=== PATIENT | female | born 1940 | race Two or more races ===

== ENCOUNTER 2022-01-18 19:00 | Inpatient (IN) | payer OTHER ==
[~2022-01-18] VITALS: Ht 167.6 cm; Wt 73.0 kg
[2022-01-18] MEDS ORDERED: cloNIDine HCL 0.1 MG TAB PO ONE (20:00)
[2022-01-18 20:19] LABS: Basophils # (auto) 0.1 10 ^3/uL (0-0.2); Basophils % (auto) 1.4 % (0.0-2.0); Eosinophils # (auto) 0.2 10 ^3/uL (0-0.8); Eosinophils % (auto) 2.9 % (0.0-7.0); Hematocrit 34.6 % (36.0-46.0); Hemoglobin 10.8 g/dL (12.2-16.2); Lymphocytes # (auto) 0.9 10 ^3/uL (0.4-5.4); Lymphocytes % (auto) 15.2 % (10.0-50.0); Mean Corpuscular Hemoglobin 29.9 pg (28.0-32.0); Mean Corpuscular Hgb Conc. 31.1 g/dL (32.0-36.0); Mean Corpuscular Volume 96.2 fL (80.0-100.0); Monocytes # (auto) 0.5 10 ^3/uL (0-1.3); Monocytes % (auto) 8.5 % (0.0-12.0); Neutrophils # (auto) 4.3 10 ^3/uL (1.6-8.6); Nucleated Red Blood Cells % 0.1 %; Red Cell Distribution Width 17.1 % (11.8-14.3)
[2022-01-18 20:21] LABS: Albumin 3.2 g/dL (3.4-5.0); Calcium 8.9 mg/dL (8.5-10.1)
[2022-01-18 20:24] LABS: BUN/Creatinine Ratio 10.4; Bilirubin, Total 0.5 mg/dL (0.2-1.0); Total Protein 6.7 g/dL (6.4-8.2)
[2022-01-18] MEDS ORDERED: ALBUTEROL SULF 2.5 MG/0.5ML(0.5%) NEB SOLN HHN ONE (20:45)
[2022-01-18] MEDS ORDERED: InsuLIN REG 1unit/0.01ml Soln (100units/ml) IV ONE (20:45)
[2022-01-18] MEDS ORDERED: SODIUM BICARBONATE 8.4 % INJ 50ML VIAL IV ONE (20:45)
[2022-01-18] MEDS ORDERED: CALCIUM GLUC 1,000mg/50ml-NS 50 ML IV ONE (20:45)
[2022-01-18] MEDS ORDERED: DEXTROSE (50%) 50ML SYRG IV ONE (20:45)
[2022-01-18] MEDS ORDERED: ONDANSETRON HCL 4 MG/2 ML VIAL IV PRN (21:15)
[2022-01-18] MEDS ORDERED: MORPHINE SULFATE INJ 2 MG/ml SYRG IV PRN (21:15)
[2022-01-18] MEDS ORDERED: NITROGLYCERIN 0.4 MG SL TAB SL PRN (21:15)
[2022-01-18] MEDS ORDERED: FUROSEMIDE 40 MG/4 ML VIAL IV ONE (21:15)
[2022-01-18] MEDS: ATORVASTATIN 20 MG TAB PO SCH (22:36)
[2022-01-18] MEDS: CARVEDILOL 3.125 MG TAB PO SCH (22:37)
[2022-01-18] MEDS: hydrALAZINE HCL 25 MG TAB PO SCH (23:50)
[2022-01-19] VITALS (8 sets, daily range): BP systolic 100–172; BP diastolic 36–62
[2022-01-19 00:38] LABS: BUN/Creatinine Ratio 10.8; Calcium 8.7 mg/dL (8.5-10.1)
[2022-01-19 00:44] LABS: Potassium 6.1 mmol/L (3.5-5.1)
[2022-01-19] MEDS: hydrALAZINE HCL 20 MG/ML VL IV PRN (04:21)
[2022-01-19] MEDS: hydrALAZINE HCL 25 MG TAB PO SCH ×4 (06:25→23:59)
[2022-01-19 06:26] LABS: Basophils # (auto) 0.1 10 ^3/uL (0-0.2); Basophils % (auto) 1.4 % (0.0-2.0); Eosinophils # (auto) 0.1 10 ^3/uL (0-0.8); Eosinophils % (auto) 2.5 % (0.0-7.0); Hematocrit 29.4 % (36.0-46.0); Hemoglobin 9.7 g/dL (12.2-16.2); Lymphocytes % (auto) 18.4 % (10.0-50.0); Mean Corpuscular Hemoglobin 31.4 pg (28.0-32.0); Mean Corpuscular Hgb Conc. 32.9 g/dL (32.0-36.0); Mean Corpuscular Volume 95.5 fL (80.0-100.0); Monocytes # (auto) 0.5 10 ^3/uL (0-1.3); Monocytes % (auto) 8.5 % (0.0-12.0); Neutrophils # (auto) 3.9 10 ^3/uL (1.6-8.6); Neutrophils % (auto) 69.2 % (37.0-80.0); Nucleated Red Blood Cells % 0.2 %; Red Blood Cells 3.08 10^6/uL (4.0-5.20); Red Cell Distribution Width 16.8 % (11.8-14.3); White Blood Cell 5.6 10^3/uL (4.4-10.8)
[2022-01-19] MEDS: LEVOTHYROXINE SODIUM 25 MCG TAB PO SCH (06:26)
[2022-01-19 06:53] LABS: Albumin 2.9 g/dL (3.4-5.0); BUN/Creatinine Ratio 10.5; Bilirubin, Total 0.4 mg/dL (0.2-1.0); Calcium 8.7 mg/dL (8.5-10.1)
[2022-01-19 06:58] LABS: Urine Bacteria NONE SEEN /hpf (None Seen); Urine Blood Negative /uL (Negative); Urine Specific Gravity 1.012 (1.001-1.035); Urine WBC 12 /hpf (0 - 5)
[2022-01-19 08:34] LABS: Potassium 5.6 mmol/L (3.5-5.1)
[2022-01-19] MEDS: SEVELAMER 800 MG TAB PO SCH ×3 (08:51→18:59)
[2022-01-19] MEDS ORDERED: SODIUM CHL 0.9% 1000 ML BAG XX ONE (09:30)
[2022-01-19] MEDS: CARVEDILOL 3.125 MG TAB PO SCH ×2 (10:00→22:00)
[2022-01-19] MEDS: ISOSORBIDE MONONITRATE ER 60 MG TAB PO SCH (10:00)
[2022-01-19] MEDS: CLOPIDOGREL BISULFATE 75 MG TAB PO SCH (10:37)
[2022-01-19] MEDS: FUROSEMIDE 40 MG TAB PO SCH (10:38)
[2022-01-19] MEDS: PANTOPRAZOLE 40 MG TAB PO SCH (10:38)
[2022-01-19 10:55] LABS: % Iron Saturation 31.4 % (15-50)
[2022-01-19 12:47] LABS: Hepatitis A Ab IgM Negative; Hepatitis B Core IgM Negative; Hepatitis C Antibody Negative (Negative)
[2022-01-19] MEDS ORDERED: EPOETIN ALFA-EPBX 10,000 UNIT/1ML VIAL SC ONE (21:00)
[2022-01-19] MEDS: ATORVASTATIN 20 MG TAB PO SCH (21:32)
[2022-01-20 05:00] VITALS: BP 118/67
[2022-01-20 05:39] LABS: Basophils # (auto) 0.1 10 ^3/uL (0-0.2); Basophils % (auto) 1.1 % (0.0-2.0); Eosinophils # (auto) 0.2 10 ^3/uL (0-0.8); Eosinophils % (auto) 4.7 % (0.0-7.0); Hematocrit 30.2 % (36.0-46.0); Hemoglobin 9.8 g/dL (12.2-16.2); Lymphocytes # (auto) 0.7 10 ^3/uL (0.4-5.4); Lymphocytes % (auto) 14.5 % (10.0-50.0); Mean Corpuscular Hemoglobin 31.1 pg (28.0-32.0); Mean Corpuscular Hgb Conc. 32.4 g/dL (32.0-36.0); Mean Corpuscular Volume 96.1 fL (80.0-100.0); Monocytes # (auto) 0.4 10 ^3/uL (0-1.3); Monocytes % (auto) 8.5 % (0.0-12.0); Neutrophils # (auto) 3.3 10 ^3/uL (1.6-8.6); Neutrophils % (auto) 71.2 % (37.0-80.0); Nucleated Red Blood Cells % 0.1 %; Red Blood Cells 3.15 10^6/uL (4.0-5.20); Red Cell Distribution Width 17.2 % (11.8-14.3); White Blood Cell 4.6 10^3/uL (4.4-10.8)
[2022-01-20 06:08] LABS: Potassium 4.7 mmol/L (3.5-5.1)
[2022-01-20 06:16] LABS: BUN/Creatinine Ratio 8.8; Calcium 8.7 mg/dL (8.5-10.1)
[2022-01-20] MEDS: hydrALAZINE HCL 25 MG TAB PO SCH ×4 (06:46→23:56)
[2022-01-20] MEDS: LEVOTHYROXINE SODIUM 25 MCG TAB PO SCH (06:46)
[2022-01-20] MEDS ORDERED: SODIUM CHL 0.9% 1000 ML BAG XX ONE (07:00)
[2022-01-20 09:00] VITALS: BP 179/50
[2022-01-20] MEDS: PANTOPRAZOLE 40 MG TAB PO SCH (09:56)
[2022-01-20] MEDS: CLOPIDOGREL BISULFATE 75 MG TAB PO SCH (09:57)
[2022-01-20] MEDS: SEVELAMER 800 MG TAB PO SCH ×3 (09:57→16:59)
[2022-01-20] MEDS: FUROSEMIDE 40 MG TAB PO SCH (09:58)
[2022-01-20] MEDS: ISOSORBIDE MONONITRATE ER 60 MG TAB PO SCH (10:00)
[2022-01-20] MEDS: CARVEDILOL 3.125 MG TAB PO SCH ×2 (10:00→22:31)
[2022-01-20 12:25] VITALS: BP 153/54
[2022-01-20] MEDS ORDERED: ALBUTEROL SULF 2.5 MG/0.5ML(0.5%) NEB SOLN NEB PRN (13:30)
[2022-01-20 16:18] VITALS: BP 201/54
[2022-01-20] MEDS: hydrALAZINE HCL 20 MG/ML VL IV PRN (18:10)
[2022-01-20] MEDS ORDERED: EPOETIN ALFA-EPBX 10,000 UNIT/1ML VIAL SC ONE (21:00)
[2022-01-20 21:18] VITALS: BP 177/86
[2022-01-20 22:00] VITALS: BP 167/58
[2022-01-20] MEDS: ATORVASTATIN 20 MG TAB PO SCH (22:31)
[2022-01-21 05:00] VITALS: BP 188/63
[2022-01-21] MEDS: hydrALAZINE HCL 25 MG TAB PO SCH ×4 (05:05→23:36)
[2022-01-21 06:34] LABS: Potassium 4.6 mmol/L (3.5-5.1)
[2022-01-21 06:52] LABS: BUN/Creatinine Ratio 7.7; Calcium 8.7 mg/dL (8.5-10.1)
[2022-01-21] MEDS: LEVOTHYROXINE SODIUM 25 MCG TAB PO SCH (07:17)
[2022-01-21 07:28] VITALS: BP 148/46
[2022-01-21 09:00] VITALS: BP 101/53
[2022-01-21] MEDS: CLOPIDOGREL BISULFATE 75 MG TAB PO SCH (09:47)
[2022-01-21] MEDS: SEVELAMER 800 MG TAB PO SCH ×3 (09:47→18:01)
[2022-01-21] MEDS: PANTOPRAZOLE 40 MG TAB PO SCH (09:47)
[2022-01-21] MEDS: FUROSEMIDE 40 MG TAB PO SCH (09:49)
[2022-01-21] MEDS: ISOSORBIDE MONONITRATE ER 60 MG TAB PO SCH (09:52)
[2022-01-21] MEDS: CARVEDILOL 3.125 MG TAB PO SCH ×2 (09:52→22:02)
[2022-01-21 12:52] VITALS: BP 191/66
[2022-01-21] MEDS: FUROSEMIDE 20 MG TAB PO SCH (14:34)
[2022-01-21] MEDS: hydrALAZINE HCL 20 MG/ML VL IV PRN (14:35)
[2022-01-21] MEDS: ACETAMINOPHEN 325 MG TAB PO PRN (14:56)
[2022-01-21 16:58] VITALS: BP 161/48
[2022-01-21 21:54] VITALS: BP 195/55
[2022-01-21] MEDS: ATORVASTATIN 20 MG TAB PO SCH (22:02)
[2022-01-22 05:00] VITALS: BP 122/74
[2022-01-22 05:58] LABS: BUN/Creatinine Ratio 8.9; Calcium 9.5 mg/dL (8.5-10.1); Potassium 4.8 mmol/L (3.5-5.1)
[2022-01-22] MEDS: hydrALAZINE HCL 25 MG TAB PO SCH ×3 (06:00→18:13)
[2022-01-22] MEDS: LEVOTHYROXINE SODIUM 25 MCG TAB PO SCH (06:41)
[2022-01-22] MEDS ORDERED: SODIUM CHL 0.9% 1000 ML BAG XX ONE (07:00)
[2022-01-22 08:00] VITALS: BP 210/72
[2022-01-22 09:00] VITALS: BP 210/72
[2022-01-22] MEDS: FUROSEMIDE 20 MG TAB PO SCH (10:01)
[2022-01-22] MEDS: CLOPIDOGREL BISULFATE 75 MG TAB PO SCH (10:02)
[2022-01-22] MEDS: PANTOPRAZOLE 40 MG TAB PO SCH (10:02)
[2022-01-22] MEDS: SEVELAMER 800 MG TAB PO SCH ×3 (10:02→18:13)
[2022-01-22 13:00] VITALS: BP 172/58
[2022-01-22] MEDS: CARVEDILOL 3.125 MG TAB PO SCH ×2 (14:24→21:34)
[2022-01-22] MEDS: ISOSORBIDE MONONITRATE ER 60 MG TAB PO SCH (14:25)
[2022-01-22 17:00] VITALS: BP 185/56
[2022-01-22] MEDS: hydrALAZINE HCL 20 MG/ML VL IV PRN (19:49)
[2022-01-22] MEDS ORDERED: EPOETIN ALFA-EPBX 10,000 UNIT/1ML VIAL SC ONE (21:00)
[2022-01-22] MEDS: ATORVASTATIN 20 MG TAB PO SCH (21:34)
[2022-01-22 22:00] VITALS: BP 187/62
[2022-01-22] MEDS: ACETAMINOPHEN 325 MG TAB PO PRN (22:52)
[2022-01-23] MEDS: hydrALAZINE HCL 25 MG TAB PO SCH ×5 (00:34→23:06)
[2022-01-23 05:00] VITALS: BP 152/43
[2022-01-23 05:55] LABS: Calcium 9.5 mg/dL (8.5-10.1); Potassium 4.7 mmol/L (3.5-5.1)
[2022-01-23 05:57] LABS: BUN/Creatinine Ratio 7.6
[2022-01-23] MEDS: LEVOTHYROXINE SODIUM 25 MCG TAB PO SCH (06:41)
[2022-01-23] MEDS: SEVELAMER 800 MG TAB PO SCH ×3 (08:00→18:45)
[2022-01-23] MEDS: hydrALAZINE HCL 20 MG/ML VL IV PRN (08:29)
[2022-01-23 09:00] VITALS: BP 202/67
[2022-01-23] MEDS: CLOPIDOGREL BISULFATE 75 MG TAB PO SCH (09:41)
[2022-01-23] MEDS: ISOSORBIDE MONONITRATE ER 60 MG TAB PO SCH (09:42)
[2022-01-23] MEDS: CARVEDILOL 3.125 MG TAB PO SCH ×2 (09:43→22:46)
[2022-01-23] MEDS: PANTOPRAZOLE 40 MG TAB PO SCH (09:44)
[2022-01-23] MEDS: FUROSEMIDE 20 MG TAB PO SCH (09:45)
[2022-01-23] MEDS ORDERED: cloNIDine HCL 0.1 MG TAB PO PRN (11:00)
[2022-01-23] MEDS ORDERED: amLODIPine BESYLATE 5 MG TAB PO ONE (11:00)
[2022-01-23 17:00] VITALS: BP 185/56
[2022-01-23 20:50] VITALS: BP 185/56
[2022-01-23 22:00] VITALS: BP 156/65
[2022-01-23] MEDS: ATORVASTATIN 20 MG TAB PO SCH (22:46)
[2022-01-24] MEDS: ACETAMINOPHEN 325 MG TAB PO PRN (01:47)
[2022-01-24 04:55] VITALS: BP 128/52
[2022-01-24] MEDS: LEVOTHYROXINE SODIUM 25 MCG TAB PO SCH (06:56)
[2022-01-24] MEDS: hydrALAZINE HCL 25 MG TAB PO SCH ×2 (06:56→13:22)
[2022-01-24] MEDS: SEVELAMER 800 MG TAB PO SCH ×2 (08:00→13:22)
[2022-01-24 09:00] VITALS: BP 140/73
[2022-01-24] MEDS ORDERED: amLODIPine BESYLATE 5 MG TAB PO SCH (10:00)
[2022-01-24] MEDS: FUROSEMIDE 20 MG TAB PO SCH (10:09)
[2022-01-24] MEDS: CARVEDILOL 3.125 MG TAB PO SCH (10:10)
[2022-01-24] MEDS: PANTOPRAZOLE 40 MG TAB PO SCH (10:10)
[2022-01-24] MEDS: ISOSORBIDE MONONITRATE ER 60 MG TAB PO SCH (10:11)
[2022-01-24] MEDS: CLOPIDOGREL BISULFATE 75 MG TAB PO SCH (10:11)
[2022-01-24] MEDS ORDERED: CAR3125T PO ×2 (11:18→11:34)
[2022-01-24] MEDS ORDERED: SEVE800T PO ×2 (11:18→11:34)
[2022-01-24] MEDS ORDERED: AMLO-496 PO ×2 (11:18→11:34)
[2022-01-24] MEDS ORDERED: CLOP75TA70 PO ×2 (11:18→11:34)
[2022-01-24] MEDS ORDERED: FURO1TAB33 PO ×2 (11:18→11:34)
[2022-01-24] MEDS ORDERED: HYDR50TA15 PO ×2 (11:18→11:34)
[2022-01-24] MEDS ORDERED: PANT40T PO ×2 (11:18→11:34)
[2022-01-24] MEDS ORDERED: CLOP75TA28 PO (11:18)
[2022-01-24] MEDS ORDERED: ATO40T PO ×2 (11:18→11:34)
[2022-01-24] MEDS ORDERED: ISO60SRT PO (11:18)
[2022-01-24] MEDS ORDERED: LEVO75TA6 PO ×2 (11:18→11:34)
[2022-01-24] MEDS ORDERED: ISOS60TA24 PO (11:34)
[2022-01-24 13:00] VITALS: BP 183/67
[2022-01-24 14:06] VITALS: BP 183/67
== END 2022-01-24 14:52 | disposition home or self-care (01) | DRG 640 ==
LOC: ER 19:07 → TELE 21:02 → TELE-WESTW 23:35
PROVIDERS: ADMIT Nurse Practitioner; ATTEND Internal Medicine Geriatric Medicine
PROC: 5A1D70Z Performance of Urinary Filtration, Intermittent, Less than 6 Hours Per Day (ICD-10-PCS; 2022-01-19)
PROC: 5A1D70Z Performance of Urinary Filtration, Intermittent, Less than 6 Hours Per Day (ICD-10-PCS; 2022-01-20)
PROC: 5A1D70Z Performance of Urinary Filtration, Intermittent, Less than 6 Hours Per Day (ICD-10-PCS; principal; 2022-01-22)
DX: E87.5 Hyperkalemia (principal); N18.6 End stage renal disease; I16.1 Hypertensive emergency; I12.0 Hypertensive chronic kidney disease with stage 5 chronic kidney disease or end stage renal disease; E44.0 Moderate protein-calorie malnutrition; E87.70 Fluid overload, unspecified; D63.1 Anemia in chronic kidney disease; E78.5 Hyperlipidemia, unspecified; E83.39 Other disorders of phosphorus metabolism; Z20.822 Contact with and (suspected) exposure to COVID-19; I25.10 Atherosclerotic heart disease of native coronary artery without angina pectoris; Z86.73 Personal history of transient ischemic attack (TIA), and cerebral infarction without residual deficits; Z90.710 Acquired absence of both cervix and uterus; Z95.1 Presence of aortocoronary bypass graft; Z95.2 Presence of prosthetic heart valve; Z99.2 Dependence on renal dialysis
CPT/HCPCS: 36415; 71045; 80048; 80053; 80074; 81001; 82728; 82962; 83540; 83550; 84100; 85025; 87081; 90935; 93005; 93970; 94644; 96365; 96375; 97110; 97116; 97163; 97530; G0378; J1815

== ENCOUNTER 2022-03-04 03:00 | Inpatient (IN) | payer OTHER ==
[~2022-03-04] VITALS: Ht 167.6 cm; Wt 71.4 kg
[~2022-03-04 03:00] MED LIST: AMLO-496 PO; ATO40T PO; CAR3125T PO; CLOP75TA70 PO; FURO1TAB33 PO; HYDR50TA15 PO; ISOS60TA24 PO; LEVO75TA6 PO; PANT40T PO; SEVE800T PO
[2022-03-04 07:21] LABS: Basophils # (auto) 0.1 10 ^3/uL (0-0.2); Basophils % (auto) 1.3 % (0.0-2.0); Eosinophils # (auto) 0.2 10 ^3/uL (0-0.8); Eosinophils % (auto) 3.5 % (0.0-7.0); Hematocrit 35.6 % (36.0-46.0); Hemoglobin 11.1 g/dL (12.2-16.2); Lymphocytes # (auto) 0.9 10 ^3/uL (0.4-5.4); Lymphocytes % (auto) 17.4 % (10.0-50.0); Mean Corpuscular Hemoglobin 29.6 pg (28.0-32.0); Mean Corpuscular Hgb Conc. 31.2 g/dL (32.0-36.0); Monocytes # (auto) 0.4 10 ^3/uL (0-1.3); Monocytes % (auto) 8.9 % (0.0-12.0); Neutrophils # (auto) 3.5 10 ^3/uL (1.6-8.6); Neutrophils % (auto) 68.9 % (37.0-80.0); Red Blood Cells 3.75 10^6/uL (4.0-5.20); Red Cell Distribution Width 17.6 % (11.8-14.3)
[2022-03-04 07:41] LABS: Albumin 3.4 g/dL (3.4-5.0); Calcium 9.3 mg/dL (8.5-10.1)
[2022-03-04 07:43] LABS: INR 1.13 (0.9-1.15); Partial Thromboplastin Time 31.1 sec (24.6-33.4)
[2022-03-04 07:45] LABS: BUN/Creatinine Ratio 12.1; Bilirubin, Total 0.5 mg/dL (0.2-1.0); Total Protein 6.5 g/dL (6.4-8.2)
[2022-03-04 07:57] LABS: Potassium 6.3 mmol/L (3.5-5.1)
[2022-03-04] MEDS ORDERED: DEXTROSE (50%) 50ML SYRG IV PRN (09:30)
[2022-03-04] MEDS ORDERED: SODIUM ZIRCONIUM CYCL 10 GM PAK PO ONE (09:30)
[2022-03-04] MEDS ORDERED: NITROGLYCERIN 0.4 MG SL TAB SL PRN (09:30)
[2022-03-04] MEDS ORDERED: DOCUSATE SOD 100 MG CAP PO PRN (09:30)
[2022-03-04] MEDS: B-COMPLEX W/ C & FOLIC ACID(NEPHROVITE TAB) PO SCH (10:59)
[2022-03-04] MEDS: InsuLIN REG 1unit/0.01ml Soln (100units/ml) SC SCH ×3 (11:30→22:00)
[2022-03-04] MEDS: ACCU-CHEK COMFORT CURVE STRIP VI SCH ×3 (11:41→22:00)
[2022-03-04 13:57] LABS: Cholesterol 96 mg/dL (< 200)
[2022-03-04 14:00] LABS: HDL Cholesterol 42 mg/dL (40-59); LDL Cholesterol 48 mg/dL (< 100); Triglycerides 83 mg/dL (< 150)
[2022-03-04] MEDS ORDERED: SEVELAMER 800 MG TAB PO SCH (14:00)
[2022-03-04] MEDS ORDERED: KETOROLAC TROMETH 30 MG/ML 1ML VIAL IV ONE (14:30)
[2022-03-04] MEDS: ACETAMINOPHEN 325 MG TAB PO PRN (20:22)
[2022-03-04] MEDS: hydrALAZINE HCL 20 MG/ML VL IV PRN (20:24)
[2022-03-04 21:45] VITALS: BP 144/64
[2022-03-04] MEDS ORDERED: ALBUTEROL SULF 2.5 MG/0.5ML(0.5%) NEB SOLN NEB ONE (21:45)
[2022-03-04] MEDS ORDERED: CALCIUM GLUC 1,000mg/50ml-NS 50 ML IV ONE (21:45)
[2022-03-04] MEDS ORDERED: InsuLIN REG 1unit/0.01ml Soln (100units/ml) IV ONE (21:45)
[2022-03-04] MEDS ORDERED: DEXTROSE (50%) 50ML SYRG IV ONE (21:45)
[2022-03-04 22:00] VITALS: BP 144/64
[2022-03-04] MEDS: SODIUM ZIRCONIUM CYCL 10 GM PAK PO SCH (23:53)
[2022-03-05 05:00] VITALS: BP 166/122
[2022-03-05 05:36] LABS: Basophils # (auto) 0.1 10 ^3/uL (0-0.2); Basophils % (auto) 0.9 % (0.0-2.0); Eosinophils # (auto) 0.1 10 ^3/uL (0-0.8); Eosinophils % (auto) 0.8 % (0.0-7.0); Hematocrit 33.6 % (36.0-46.0); Hemoglobin 10.6 g/dL (12.2-16.2); Lymphocytes # (auto) 0.6 10 ^3/uL (0.4-5.4); Lymphocytes % (auto) 8.6 % (10.0-50.0); Mean Corpuscular Hemoglobin 30.1 pg (28.0-32.0); Mean Corpuscular Hgb Conc. 31.5 g/dL (32.0-36.0); Mean Corpuscular Volume 95.6 fL (80.0-100.0); Monocytes # (auto) 0.6 10 ^3/uL (0-1.3); Monocytes % (auto) 9.3 % (0.0-12.0); Neutrophils # (auto) 5.4 10 ^3/uL (1.6-8.6); Neutrophils % (auto) 80.4 % (37.0-80.0); Red Blood Cells 3.51 10^6/uL (4.0-5.20); Red Cell Distribution Width 17.7 % (11.8-14.3); White Blood Cell 6.7 10^3/uL (4.4-10.8)
[2022-03-05] MEDS: ONDANSETRON HCL 4 MG/2 ML VIAL IV PRN ×2 (05:49→06:23)
[2022-03-05] MEDS: SODIUM ZIRCONIUM CYCL 10 GM PAK PO SCH ×3 (05:50→21:56)
[2022-03-05 06:01] LABS: Albumin 3.1 g/dL (3.4-5.0); BUN/Creatinine Ratio 12.5; Calcium 9.4 mg/dL (8.5-10.1)
[2022-03-05 06:04] LABS: Bilirubin, Total 0.5 mg/dL (0.2-1.0)
[2022-03-05] MEDS: ACCU-CHEK COMFORT CURVE STRIP VI SCH ×4 (06:22→21:49)
[2022-03-05] MEDS: InsuLIN REG 1unit/0.01ml Soln (100units/ml) SC SCH ×4 (06:24→21:58)
[2022-03-05 06:34] LABS: Potassium 5.6 mmol/L (3.5-5.1)
[2022-03-05] MEDS: ACETAMINOPHEN 325 MG TAB PO PRN ×2 (06:59→20:48)
[2022-03-05] MEDS ORDERED: SODIUM CHL 0.9% 1000 ML BAG XX ONE (07:00)
[2022-03-05 08:45] VITALS: BP 174/49
[2022-03-05] MEDS: B-COMPLEX W/ C & FOLIC ACID(NEPHROVITE TAB) PO SCH (09:30)
[2022-03-05 13:00] VITALS: BP 148/72
[2022-03-05 16:45] VITALS: BP 128/58
[2022-03-05] MEDS ORDERED: EPOETIN ALFA-EPBX 10,000 UNIT/1ML VIAL SC ONE (21:00)
[2022-03-05 22:00] VITALS: BP 176/77
[2022-03-06] MEDS: ACETAMINOPHEN 325 MG TAB PO PRN ×3 (04:04→21:38)
[2022-03-06 05:00] VITALS: BP 149/71
[2022-03-06 05:52] LABS: Basophils # (auto) 0.1 10 ^3/uL (0-0.2); Basophils % (auto) 0.9 % (0.0-2.0); Eosinophils # (auto) 0.1 10 ^3/uL (0-0.8); Eosinophils % (auto) 2.4 % (0.0-7.0); Hematocrit 29.6 % (36.0-46.0); Hemoglobin 9.5 g/dL (12.2-16.2); Lymphocytes # (auto) 0.7 10 ^3/uL (0.4-5.4); Mean Corpuscular Hemoglobin 30.5 pg (28.0-32.0); Mean Corpuscular Hgb Conc. 32.1 g/dL (32.0-36.0); Mean Corpuscular Volume 94.9 fL (80.0-100.0); Monocytes # (auto) 0.6 10 ^3/uL (0-1.3); Monocytes % (auto) 10.1 % (0.0-12.0); Neutrophils # (auto) 4.6 10 ^3/uL (1.6-8.6); Neutrophils % (auto) 75.6 % (37.0-80.0); Nucleated Red Blood Cells % 0.1 %; Red Blood Cells 3.12 10^6/uL (4.0-5.20); Red Cell Distribution Width 17.6 % (11.8-14.3); White Blood Cell 6.1 10^3/uL (4.4-10.8)
[2022-03-06 05:58] LABS: Albumin 2.6 g/dL (3.4-5.0); Anion Gap 8 (5-15); Blood Urea Nitrogen 55 mg/dL (7-18); Calcium 8.7 mg/dL (8.5-10.1); Carbon Dioxide 29 mmol/L (21-32); Chloride 104 mmol/L (98-107); Glucose 109 mg/dL (74-106); Potassium 4.8 mmol/L (3.5-5.1); Sodium 141 mmol/L (136-145)
[2022-03-06 06:03] LABS: Alanine Aminotransferase 11 U/L (13-56); Alkaline Phosphatase 64 U/L (45-117); Aspartate Aminotransferase < 3 U/L (15-37); BUN/Creatinine Ratio 10.2; Bilirubin, Total 0.5 mg/dL (0.2-1.0); GFR African American 10 mL/min; GFR Non-African American 8 mL/min; Total Protein 5.3 g/dL (6.4-8.2)
[2022-03-06] MEDS: ACCU-CHEK COMFORT CURVE STRIP VI SCH ×4 (06:18→21:39)
[2022-03-06] MEDS: InsuLIN REG 1unit/0.01ml Soln (100units/ml) SC SCH ×4 (06:18→21:47)
[2022-03-06] MEDS: SODIUM ZIRCONIUM CYCL 10 GM PAK PO SCH ×3 (06:28→21:38)
[2022-03-06 07:30] VITALS: BP 175/60
[2022-03-06 08:37] VITALS: BP 168/52
[2022-03-06] MEDS: B-COMPLEX W/ C & FOLIC ACID(NEPHROVITE TAB) PO SCH (09:19)
[2022-03-06] MEDS: hydrALAZINE HCL 20 MG/ML VL IV PRN ×2 (09:20→18:37)
[2022-03-06 12:32] VITALS: BP 152/77
[2022-03-06 16:43] VITALS: BP 183/52
[2022-03-06 22:00] VITALS: BP 137/51
[2022-03-07] MEDS: ACETAMINOPHEN 325 MG TAB PO PRN (03:05)
[2022-03-07] MEDS: ALUM & MAG HYDROX-SIMETH LIQ(MAALOX) 30 ML PO PRN ×2 (03:17→21:01)
[2022-03-07] MEDS: hydrALAZINE HCL 20 MG/ML VL IV PRN ×3 (04:52→20:02)
[2022-03-07 05:00] VITALS: BP 176/52
[2022-03-07] MEDS: SODIUM ZIRCONIUM CYCL 10 GM PAK PO SCH ×3 (05:38→22:33)
[2022-03-07] MEDS: ACCU-CHEK COMFORT CURVE STRIP VI SCH ×4 (05:39→22:25)
[2022-03-07] MEDS: InsuLIN REG 1unit/0.01ml Soln (100units/ml) SC SCH ×4 (05:39→22:33)
[2022-03-07] MEDS ORDERED: SODIUM CHL 0.9% 1000 ML BAG XX ONE (07:00)
[2022-03-07 07:02] LABS: Calcium 8.7 mg/dL (8.5-10.1); Potassium 4.6 mmol/L (3.5-5.1)
[2022-03-07 07:04] LABS: BUN/Creatinine Ratio 10.3
[2022-03-07 07:30] VITALS: BP 176/52
[2022-03-07 09:00] VITALS: BP 110/56
[2022-03-07] MEDS: B-COMPLEX W/ C & FOLIC ACID(NEPHROVITE TAB) PO SCH (09:56)
[2022-03-07 16:58] VITALS: BP 161/72
[2022-03-07] MEDS: ONDANSETRON HCL 4 MG/2 ML VIAL IV PRN (20:15)
[2022-03-07] MEDS ORDERED: EPOETIN ALFA-EPBX 10,000 UNIT/1ML VIAL SC ONE (21:00)
[2022-03-07 22:00] VITALS: BP 176/53
[2022-03-07 23:05] VITALS: BP 157/77
[2022-03-07] MEDS ORDERED: amLODIPine BESYLATE 5 MG TAB PO ONE (23:45)
[2022-03-08 01:24] VITALS: BP 148/81
[2022-03-08 05:00] VITALS: BP 171/59
[2022-03-08 05:07] VITALS: BP 152/67
[2022-03-08] MEDS: ACCU-CHEK COMFORT CURVE STRIP VI SCH ×4 (06:23→23:47)
[2022-03-08] MEDS: InsuLIN REG 1unit/0.01ml Soln (100units/ml) SC SCH ×4 (06:29→22:00)
[2022-03-08] MEDS: SODIUM ZIRCONIUM CYCL 10 GM PAK PO SCH ×3 (06:45→22:00)
[2022-03-08] MEDS: CARVEDILOL 3.125 MG TAB PO SCH ×2 (11:04→23:46)
[2022-03-08] MEDS: ISOSORBIDE MONONITRATE ER 60 MG TAB PO SCH (11:04)
[2022-03-08] MEDS: B-COMPLEX W/ C & FOLIC ACID(NEPHROVITE TAB) PO SCH (11:05)
[2022-03-08] MEDS: amLODIPine BESYLATE 5 MG TAB PO SCH (11:07)
[2022-03-08 13:00] VITALS: BP 154/66
[2022-03-08] MEDS: ALUM & MAG HYDROX-SIMETH LIQ(MAALOX) 30 ML PO PRN (16:35)
[2022-03-08] MEDS: ACETAMINOPHEN 325 MG TAB PO PRN (16:35)
[2022-03-08 17:03] VITALS: BP 128/95
[2022-03-08 21:51] VITALS: BP 138/46
[2022-03-09 05:00] VITALS: BP 124/50
[2022-03-09] MEDS: SODIUM ZIRCONIUM CYCL 10 GM PAK PO SCH ×3 (06:00→22:00)
[2022-03-09] MEDS: ACCU-CHEK COMFORT CURVE STRIP VI SCH ×4 (06:16→22:41)
[2022-03-09] MEDS: InsuLIN REG 1unit/0.01ml Soln (100units/ml) SC SCH ×4 (07:30→22:00)
[2022-03-09 08:36] VITALS: BP 118/53
[2022-03-09] MEDS: B-COMPLEX W/ C & FOLIC ACID(NEPHROVITE TAB) PO SCH ×2 (10:45→10:48)
[2022-03-09] MEDS: ISOSORBIDE MONONITRATE ER 60 MG TAB PO SCH ×2 (10:45→10:48)
[2022-03-09] MEDS: amLODIPine BESYLATE 5 MG TAB PO SCH ×2 (10:45→10:48)
[2022-03-09 13:10] VITALS: BP 120/80
[2022-03-09 13:21] VITALS: BP 118/50
[2022-03-09 14:06] LABS: Potassium 5.4 mmol/L (3.5-5.1)
[2022-03-09] MEDS: ACETAMINOPHEN 325 MG TAB PO PRN (14:44)
[2022-03-09 17:01] VITALS: BP 114/70
[2022-03-09] MEDS ORDERED: SODIUM ZIRCONIUM CYCL 10 GM PAK PO ONE (17:30)
[2022-03-10 05:05] VITALS: BP 117/76
[2022-03-10] MEDS: SODIUM ZIRCONIUM CYCL 10 GM PAK PO SCH ×2 (06:00→13:53)
[2022-03-10 06:03] LABS: Basophils # (auto) 0 10 ^3/uL (0-0.2); Eosinophils # (auto) 0 10 ^3/uL (0-0.8); Eosinophils % (auto) 0.1 % (0.0-7.0); Hematocrit 33.4 % (36.0-46.0); Hemoglobin 10.4 g/dL (12.2-16.2); Lymphocytes # (auto) 0.6 10 ^3/uL (0.4-5.4); Lymphocytes % (auto) 12.2 % (10.0-50.0); Mean Corpuscular Hemoglobin 29.9 pg (28.0-32.0); Mean Corpuscular Hgb Conc. 31.3 g/dL (32.0-36.0); Mean Corpuscular Volume 95.7 fL (80.0-100.0); Monocytes # (auto) 0.5 10 ^3/uL (0-1.3); Monocytes % (auto) 9.7 % (0.0-12.0); Neutrophils # (auto) 3.8 10 ^3/uL (1.6-8.6); Nucleated Red Blood Cells % 0.1 %; Red Blood Cells 3.49 10^6/uL (4.0-5.20); Red Cell Distribution Width 17.8 % (11.8-14.3); White Blood Cell 4.9 10^3/uL (4.4-10.8)
[2022-03-10] MEDS: InsuLIN REG 1unit/0.01ml Soln (100units/ml) SC SCH ×4 (06:15→22:00)
[2022-03-10] MEDS: ACCU-CHEK COMFORT CURVE STRIP VI SCH ×4 (06:15→22:01)
[2022-03-10 06:28] LABS: BUN/Creatinine Ratio 10.1; Calcium 9.4 mg/dL (8.5-10.1)
[2022-03-10 06:54] LABS: Potassium 5.6 mmol/L (3.5-5.1)
[2022-03-10 08:00] VITALS: BP 159/57
[2022-03-10] MEDS: B-COMPLEX W/ C & FOLIC ACID(NEPHROVITE TAB) PO SCH (09:50)
[2022-03-10] MEDS: amLODIPine BESYLATE 5 MG TAB PO SCH (09:51)
[2022-03-10] MEDS: ISOSORBIDE MONONITRATE ER 60 MG TAB PO SCH (09:51)
[2022-03-10 12:00] VITALS: BP 155/67
[2022-03-10 16:00] VITALS: BP 154/79
[2022-03-10 22:00] VITALS: BP 148/72
[2022-03-10] MEDS: ALUM & MAG HYDROX-SIMETH LIQ(MAALOX) 30 ML PO PRN (23:35)
[2022-03-11 05:00] VITALS: BP 164/49
[2022-03-11] MEDS: hydrALAZINE HCL 20 MG/ML VL IV PRN ×2 (05:40→23:21)
[2022-03-11 06:35] LABS: Calcium 8.6 mg/dL (8.5-10.1); Potassium 4.4 mmol/L (3.5-5.1)
[2022-03-11] MEDS: InsuLIN REG 1unit/0.01ml Soln (100units/ml) SC SCH ×4 (06:54→21:48)
[2022-03-11] MEDS: ACCU-CHEK COMFORT CURVE STRIP VI SCH ×4 (06:54→21:49)
[2022-03-11 08:00] VITALS: BP 154/64
[2022-03-11] MEDS: ISOSORBIDE MONONITRATE ER 60 MG TAB PO SCH (09:24)
[2022-03-11] MEDS: B-COMPLEX W/ C & FOLIC ACID(NEPHROVITE TAB) PO SCH (09:24)
[2022-03-11] MEDS: ACETAMINOPHEN 325 MG TAB PO PRN (09:25)
[2022-03-11] MEDS: amLODIPine BESYLATE 5 MG TAB PO SCH (09:27)
[2022-03-11] MEDS: ALUM & MAG HYDROX-SIMETH LIQ(MAALOX) 30 ML PO PRN ×2 (11:42→23:09)
[2022-03-11 12:00] VITALS: BP 145/69
[2022-03-11 16:00] VITALS: BP 159/73
[2022-03-11 17:22] LABS: Urine Bacteria FEW /hpf (None Seen); Urine Blood Negative /uL (Negative); Urine Hyaline Cast FEW /lpf (0 - 2); Urine Specific Gravity 1.018 (1.001-1.035); Urine WBC 7 /hpf (0 - 5)
[2022-03-11] MEDS ORDERED: ceFAZolin 2 GM in D5W 5% 100 ML IV ONE ×3 (19:00→22:00)
[2022-03-11 22:00] VITALS: BP 170/60
[2022-03-11] MEDS ORDERED: ceFAZolin 1GM/50ML 50 ML IV SCH (22:00)
[2022-03-11] MEDS ORDERED: ceFAZolin 2 GM in D5W 5% 100 ML IV SCH (22:00)
[2022-03-12 05:19] VITALS: BP 145/43
[2022-03-12] MEDS: ACCU-CHEK COMFORT CURVE STRIP VI SCH ×2 (06:18→16:02)
[2022-03-12] MEDS: InsuLIN REG 1unit/0.01ml Soln (100units/ml) SC SCH ×2 (06:19→15:50)
[2022-03-12] MEDS ORDERED: SODIUM CHL 0.9% 1000 ML BAG XX ONE (07:45)
[2022-03-12 09:00] VITALS: BP 137/58
[2022-03-12] MEDS: ISOSORBIDE MONONITRATE ER 60 MG TAB PO SCH (09:52)
[2022-03-12] MEDS: B-COMPLEX W/ C & FOLIC ACID(NEPHROVITE TAB) PO SCH (09:52)
[2022-03-12] MEDS: amLODIPine BESYLATE 5 MG TAB PO SCH (10:00)
[2022-03-12] MEDS ORDERED: CEPH-510 PO (10:55)
[2022-03-12 13:00] VITALS: BP 146/50
[2022-03-12 14:35] VITALS: BP 137/58
[2022-03-12] MEDS ORDERED: EPOETIN ALFA-EPBX 10,000 UNIT/1ML VIAL SC ONE (21:00)
== END 2022-03-12 16:00 | disposition home or self-care (01) | DRG 604 ==
LOC: ER 03:00 → TELE 09:36 → TELE-EAST 21:12
PROVIDERS: ADMIT Family Medicine; ATTEND Internal Medicine Geriatric Medicine
PROC: 5A1D70Z Performance of Urinary Filtration, Intermittent, Less than 6 Hours Per Day (ICD-10-PCS; 2022-03-05)
PROC: 5A1D70Z Performance of Urinary Filtration, Intermittent, Less than 6 Hours Per Day (ICD-10-PCS; principal; 2022-03-07)
PROC: 5A1D70Z Performance of Urinary Filtration, Intermittent, Less than 6 Hours Per Day (ICD-10-PCS; 2022-03-10)
PROC: 5A1D70Z Performance of Urinary Filtration, Intermittent, Less than 6 Hours Per Day (ICD-10-PCS; 2022-03-12)
DX: S80.12XA Contusion of left lower leg, initial encounter (principal); J18.9 Pneumonia, unspecified organism; N18.6 End stage renal disease; I13.2 Hypertensive heart and chronic kidney disease with heart failure and with stage 5 chronic kidney disease, or end stage renal disease; E11.52 Type 2 diabetes mellitus with diabetic peripheral angiopathy with gangrene; I50.22 Chronic systolic (congestive) heart failure; E87.5 Hyperkalemia; E11.65 Type 2 diabetes mellitus with hyperglycemia; E11.22 Type 2 diabetes mellitus with diabetic chronic kidney disease; Z20.822 Contact with and (suspected) exposure to COVID-19; E03.9 Hypothyroidism, unspecified; W18.39XA Other fall on same level, initial encounter; D63.1 Anemia in chronic kidney disease; M85.80 Other specified disorders of bone density and structure, unspecified site; Z86.73 Personal history of transient ischemic attack (TIA), and cerebral infarction without residual deficits; Z99.2 Dependence on renal dialysis; Z95.2 Presence of prosthetic heart valve; Z88.6 Allergy status to analgesic agent; Z88.5 Allergy status to narcotic agent; Z90.710 Acquired absence of both cervix and uterus; Y93.89 Activity, other specified; Y92.098 Other place in other non-institutional residence as the place of occurrence of the external cause; Y99.8 Other external cause status
CPT/HCPCS: 36415; 71045; 73590; 73700; 80048; 80053; 80061; 81001; 82728; 82962; 83036; 83880; 84443; 84484; 85025; 85610; 85730; 87040; 87081; 87086; 87426; 90935; 93306; 93971; 94644; 96374; 96375; 97110; 97116; 97163; 97530; G0378; J0690; J1815; J1885; J2405

== ENCOUNTER 2022-03-30 01:33 | Inpatient (IN) | payer OTHER ==
[~2022-03-30] VITALS: Ht 167.6 cm; Wt 66.4 kg
[~2022-03-30 01:33] MED LIST changes: +CEPH-510 PO
[2022-03-30] MEDS ORDERED: KETOROLAC TROMETH 30 MG/ML 1ML VIAL IV ONE (02:15)
[2022-03-30] MEDS ORDERED: fentaNYL CITRATE 100 MCG/2 ML VL IV ONE (02:15)
[2022-03-30 02:39] LABS: Basophils # (auto) 0.1 10 ^3/uL (0-0.2); Basophils % (auto) 0.9 % (0.0-2.0); Eosinophils # (auto) 0.1 10 ^3/uL (0-0.8); Eosinophils % (auto) 1.4 % (0.0-7.0); Hematocrit 31.7 % (36.0-46.0); Lymphocytes # (auto) 0.9 10 ^3/uL (0.4-5.4); Lymphocytes % (auto) 13.1 % (10.0-50.0); Mean Corpuscular Hgb Conc. 31.5 g/dL (32.0-36.0); Mean Corpuscular Volume 95.2 fL (80.0-100.0); Monocytes # (auto) 0.5 10 ^3/uL (0-1.3); Monocytes % (auto) 6.7 % (0.0-12.0); Neutrophils # (auto) 5.4 10 ^3/uL (1.6-8.6); Neutrophils % (auto) 77.9 % (37.0-80.0); Red Blood Cells 3.33 10^6/uL (4.0-5.20); Red Cell Distribution Width 17.4 % (11.8-14.3); White Blood Cell 6.9 10^3/uL (4.4-10.8)
[2022-03-30] MEDS ORDERED: ONDANSETRON HCL 4 MG/2 ML VIAL IV ONE (03:15)
[2022-03-30] MEDS ORDERED: LABETALOL HCL 5 MG/ML 4ML SYRINGE IV ONE (03:15)
[2022-03-30 03:50] LABS: Alanine Aminotransferase 12 U/L (13-56); Anion Gap 9 (5-15); BUN/Creatinine Ratio 9.6; Blood Urea Nitrogen 50 mg/dL (7-18); Calcium 8.7 mg/dL (8.5-10.1); Carbon Dioxide 23 mmol/L (21-32); Chloride 109 mmol/L (98-107); GFR African American 10 mL/min; GFR Non-African American 8 mL/min; Glucose 152 mg/dL (74-106); Magnesium 2.7 mg/dL (1.6-2.6); Potassium 5.2 mmol/L (3.5-5.1); Sodium 141 mmol/L (136-145)
[2022-03-30 03:54] LABS: Alkaline Phosphatase 81 U/L (45-117); Aspartate Aminotransferase 18 U/L (15-37); Bilirubin, Total 0.4 mg/dL (0.2-1.0); Total Protein 6.6 g/dL (6.4-8.2)
[2022-03-30] MEDS ORDERED: LEVO500T31 PO (05:28)
[2022-03-30] MEDS ORDERED: levoFLOXacin 500 MG TAB PO ONE (05:30)
[2022-03-30] MEDS ORDERED: cloNIDine HCL 0.1 MG TAB PO ONE (06:45)
[2022-03-30] MEDS ORDERED: HYDROcodone-ACET 5/325MG TAB PO ONE (08:15)
[2022-03-30] MEDS ORDERED: MORPHINE SULFATE INJ 2 MG/ml SYRG IV PRN (13:00)
[2022-03-30] MEDS ORDERED: ONDANSETRON HCL 4 MG/2 ML VIAL IV PRN (13:00)
[2022-03-30] MEDS ORDERED: PANTOPRAZOLE 40 MG/10 ML VIAL INJ IV ONE (13:00)
[2022-03-30] MEDS ORDERED: HYDROcodone-ACET 5/325MG TAB PO PRN (13:00)
[2022-03-30] MEDS ORDERED: DOCUSATE SOD 100 MG CAP PO PRN (13:00)
[2022-03-30] MEDS ORDERED: NITROGLYCERIN 0.4 MG SL TAB SL PRN (13:00)
[2022-03-30] MEDS ORDERED: ALBUTEROL SULF 2.5 MG/0.5ML(0.5%) NEB SOLN NEB PRN (14:30)
[2022-03-30] MEDS: SODIUM CHLOR 0.9% PF (SALINE LOCK) 10ML VIAL/SYR IV SCH ×2 (14:41→22:01)
[2022-03-30] MEDS: SEVELAMER 800 MG TAB PO SCH (17:33)
[2022-03-30] MEDS: ATORVASTATIN 20 MG TAB PO SCH (17:34)
[2022-03-30 19:33] VITALS: BP 177/57
[2022-03-30] MEDS: HYDROcodone-ACET 5/325MG TAB PO PRN (19:51)
[2022-03-30] MEDS: ACETAMINOPHEN 325 MG TAB PO PRN (19:55)
[2022-03-30] MEDS: CARVEDILOL 3.125 MG TAB PO SCH (22:00)
[2022-03-30] MEDS: hydrALAZINE HCL 20 MG/ML VL IV PRN (22:34)
[2022-03-31] MEDS: HYDROcodone-ACET 5/325MG TAB PO PRN ×2 (00:35→08:25)
[2022-03-31] MEDS: ACETAMINOPHEN 325 MG TAB PO PRN ×3 (02:32→19:40)
[2022-03-31 05:00] VITALS: BP 160/48
[2022-03-31] MEDS: LEVOTHYROXINE SODIUM 25 MCG TAB PO SCH (06:00)
[2022-03-31] MEDS: hydrALAZINE HCL 20 MG/ML VL IV PRN ×2 (06:10→19:54)
[2022-03-31] MEDS: SODIUM CHLOR 0.9% PF (SALINE LOCK) 10ML VIAL/SYR IV SCH ×3 (06:11→21:59)
[2022-03-31 06:46] LABS: Basophils # (auto) 0.1 10 ^3/uL (0-0.2); Basophils % (auto) 1.1 % (0.0-2.0); Eosinophils # (auto) 0.1 10 ^3/uL (0-0.8); Eosinophils % (auto) 2.1 % (0.0-7.0); Hematocrit 30.6 % (36.0-46.0); Lymphocytes # (auto) 0.8 10 ^3/uL (0.4-5.4); Lymphocytes % (auto) 12.9 % (10.0-50.0); Mean Corpuscular Hemoglobin 30.6 pg (28.0-32.0); Mean Corpuscular Hgb Conc. 32.7 g/dL (32.0-36.0); Mean Corpuscular Volume 93.5 fL (80.0-100.0); Monocytes # (auto) 0.5 10 ^3/uL (0-1.3); Monocytes % (auto) 7.6 % (0.0-12.0); Neutrophils # (auto) 4.7 10 ^3/uL (1.6-8.6); Neutrophils % (auto) 76.3 % (37.0-80.0); Nucleated Red Blood Cells % 0.1 %; Red Blood Cells 3.27 10^6/uL (4.0-5.20); Red Cell Distribution Width 16.9 % (11.8-14.3); White Blood Cell 6.2 10^3/uL (4.4-10.8)
[2022-03-31 06:58] LABS: Albumin 2.7 g/dL (3.4-5.0)
[2022-03-31] MEDS ORDERED: SODIUM CHL 0.9% 1000 ML BAG XX ONE (07:00)
[2022-03-31 07:02] LABS: Bilirubin, Total 0.4 mg/dL (0.2-1.0); Total Protein 5.6 g/dL (6.4-8.2)
[2022-03-31 07:06] LABS: BUN/Creatinine Ratio 11.3; Potassium 6.1 mmol/L (3.5-5.1)
[2022-03-31] MEDS: SEVELAMER 800 MG TAB PO SCH ×3 (08:18→18:30)
[2022-03-31 08:47] VITALS: BP 139/47
[2022-03-31] MEDS ORDERED: ENOXAPARIN SOD 40 MG/0.4 ML SYRINGE SC SCH (10:00)
[2022-03-31] MEDS ORDERED: PANTOPRAZOLE 40 MG/10 ML VIAL INJ IV SCH (10:00)
[2022-03-31 12:42] VITALS: BP 167/62
[2022-03-31 12:47] VITALS: BP 176/79
[2022-03-31] MEDS: ISOSORBIDE MONONITRATE ER 60 MG TAB PO SCH (12:53)
[2022-03-31] MEDS: CLOPIDOGREL BISULFATE 75 MG TAB PO SCH (12:53)
[2022-03-31] MEDS: FUROSEMIDE 20 MG TAB PO SCH (13:12)
[2022-03-31] MEDS: CARVEDILOL 3.125 MG TAB PO SCH (13:12)
[2022-03-31] MEDS: amLODIPine BESYLATE 5 MG TAB PO SCH (13:14)
[2022-03-31] MEDS: cefTRIAXone 1GM/50ML D5W 50 ML IV SCH (13:15)
[2022-03-31] MEDS: AZITHROMYCIN 500MG/ 250ML 250 ML IV SCH (13:49)
[2022-03-31 16:49] VITALS: BP 139/39
[2022-03-31] MEDS: ATORVASTATIN 20 MG TAB PO SCH (18:30)
[2022-03-31] MEDS ORDERED: EPOETIN ALFA-EPBX 10,000 UNIT/1ML VIAL SC ONE (21:00)
[2022-03-31 22:00] VITALS: BP 138/40
[2022-04-01] MEDS: ACETAMINOPHEN 325 MG TAB PO PRN ×2 (04:40→21:25)
[2022-04-01] MEDS: hydrALAZINE HCL 20 MG/ML VL IV PRN (04:40)
[2022-04-01 05:00] VITALS: BP 172/52
[2022-04-01] MEDS: LEVOTHYROXINE SODIUM 25 MCG TAB PO SCH (05:24)
[2022-04-01] MEDS: SODIUM CHLOR 0.9% PF (SALINE LOCK) 10ML VIAL/SYR IV SCH ×2 (05:48→15:37)
[2022-04-01 06:55] LABS: Basophils # (auto) 0 10 ^3/uL (0-0.2); Basophils % (auto) 0.8 % (0.0-2.0); Eosinophils # (auto) 0.1 10 ^3/uL (0-0.8); Eosinophils % (auto) 2.6 % (0.0-7.0); Hemoglobin 9.1 g/dL (12.2-16.2); Lymphocytes # (auto) 0.8 10 ^3/uL (0.4-5.4); Lymphocytes % (auto) 16.3 % (10.0-50.0); Mean Corpuscular Hemoglobin 30.2 pg (28.0-32.0); Mean Corpuscular Hgb Conc. 32.5 g/dL (32.0-36.0); Monocytes # (auto) 0.4 10 ^3/uL (0-1.3); Monocytes % (auto) 8.3 % (0.0-12.0); Neutrophils # (auto) 3.4 10 ^3/uL (1.6-8.6); Nucleated Red Blood Cells % 0.1 %; Red Blood Cells 3.01 10^6/uL (4.0-5.20); Red Cell Distribution Width 16.8 % (11.8-14.3); White Blood Cell 4.7 10^3/uL (4.4-10.8)
[2022-04-01 07:29] LABS: Potassium 4.7 mmol/L (3.5-5.1)
[2022-04-01 07:38] LABS: Albumin 2.6 g/dL (3.4-5.0); BUN/Creatinine Ratio 8.7; Bilirubin, Total 0.7 mg/dL (0.2-1.0); Calcium 8.6 mg/dL (8.5-10.1); Total Protein 5.4 g/dL (6.4-8.2)
[2022-04-01] MEDS: SEVELAMER 800 MG TAB PO SCH ×3 (08:42→18:15)
[2022-04-01 08:55] VITALS: BP 152/51
[2022-04-01] MEDS: cefTRIAXone 1GM/50ML D5W 50 ML IV SCH (08:58)
[2022-04-01] MEDS: FUROSEMIDE 20 MG TAB PO SCH (08:59)
[2022-04-01] MEDS: ISOSORBIDE MONONITRATE ER 60 MG TAB PO SCH (09:00)
[2022-04-01] MEDS: CLOPIDOGREL BISULFATE 75 MG TAB PO SCH (09:00)
[2022-04-01] MEDS: amLODIPine BESYLATE 5 MG TAB PO SCH (09:01)
[2022-04-01] MEDS: AZITHROMYCIN 500MG/ 250ML 250 ML IV SCH (10:07)
[2022-04-01] MEDS ORDERED: ERGOCALCIFEROL 50,000 UNIT(1.25MG) CAP PO SCH (10:30)
[2022-04-01 12:00] VITALS: BP 132/53
[2022-04-01 16:43] VITALS: BP 155/51
[2022-04-01] MEDS: ATORVASTATIN 20 MG TAB PO SCH (18:16)
[2022-04-01 22:00] VITALS: BP 185/57
[2022-04-02] MEDS: SODIUM CHLOR 0.9% PF (SALINE LOCK) 10ML VIAL/SYR IV SCH ×3 (00:22→14:00)
[2022-04-02] MEDS: hydrALAZINE HCL 20 MG/ML VL IV PRN (03:11)
[2022-04-02] MEDS: ACETAMINOPHEN 325 MG TAB PO PRN ×2 (03:39→17:42)
[2022-04-02 05:00] VITALS: BP 169/55
[2022-04-02] MEDS: CLINDAMYCIN HCL 150 MG CAP PO SCH ×2 (06:10→14:00)
[2022-04-02] MEDS: LEVOTHYROXINE SODIUM 25 MCG TAB PO SCH (06:10)
[2022-04-02 06:26] LABS: Albumin 2.9 g/dL (3.4-5.0); Calcium 8.9 mg/dL (8.5-10.1); Potassium 4.8 mmol/L (3.5-5.1)
[2022-04-02 06:29] LABS: Bilirubin, Total 0.4 mg/dL (0.2-1.0); Total Protein 6.2 g/dL (6.4-8.2)
[2022-04-02] MEDS ORDERED: SODIUM CHL 0.9% 1000 ML BAG XX ONE (07:00)
[2022-04-02] MEDS: AZITHROMYCIN 500MG/ 250ML 250 ML IV SCH (09:00)
[2022-04-02] MEDS: cefTRIAXone 1GM/50ML D5W 50 ML IV SCH (09:00)
[2022-04-02] MEDS: SEVELAMER 800 MG TAB PO SCH ×2 (09:00→12:00)
[2022-04-02 09:01] VITALS: BP 167/53
[2022-04-02] MEDS: FUROSEMIDE 20 MG TAB PO SCH (09:02)
[2022-04-02] MEDS: ISOSORBIDE MONONITRATE ER 60 MG TAB PO SCH (09:02)
[2022-04-02] MEDS: amLODIPine BESYLATE 5 MG TAB PO SCH (09:03)
[2022-04-02] MEDS: CLOPIDOGREL BISULFATE 75 MG TAB PO SCH (09:03)
[2022-04-02] MEDS ORDERED: CLIN150C PO (10:04)
[2022-04-02] MEDS: HYDROcodone-ACET 5/325MG TAB PO PRN ×2 (11:20→17:40)
[2022-04-02 15:02] VITALS: BP 162/53
[2022-04-02] MEDS ORDERED: EPOETIN ALFA-EPBX 10,000 UNIT/1ML VIAL SC ONE (21:00)
[2022-04-03] MEDS ORDERED: PANTOPRAZOLE 40 MG TAB PO SCH (10:00)
== END 2022-04-02 18:00 | disposition home or self-care (01) | DRG 304 ==
LOC: EDBD 01:33 → ER 01:37 → TELE 12:53 → TELE-CENTR 23:10
PROVIDERS: ADMIT Nurse Practitioner Family; ATTEND Internal Medicine Geriatric Medicine
PROC: 5A1D70Z Performance of Urinary Filtration, Intermittent, Less than 6 Hours Per Day (ICD-10-PCS; principal; 2022-03-31)
PROC: 5A1D70Z Performance of Urinary Filtration, Intermittent, Less than 6 Hours Per Day (ICD-10-PCS; 2022-04-02)
DX: I16.1 Hypertensive emergency (principal); J18.9 Pneumonia, unspecified organism; N18.6 End stage renal disease; E46 Unspecified protein-calorie malnutrition; I50.42 Chronic combined systolic (congestive) and diastolic (congestive) heart failure; I13.2 Hypertensive heart and chronic kidney disease with heart failure and with stage 5 chronic kidney disease, or end stage renal disease; Z20.822 Contact with and (suspected) exposure to COVID-19; E87.5 Hyperkalemia; E78.5 Hyperlipidemia, unspecified; D63.1 Anemia in chronic kidney disease; E03.9 Hypothyroidism, unspecified; W18.39XA Other fall on same level, initial encounter; E55.9 Vitamin D deficiency, unspecified; S80.12XA Contusion of left lower leg, initial encounter; Z99.2 Dependence on renal dialysis; Z88.5 Allergy status to narcotic agent; I25.2 Old myocardial infarction; Z88.6 Allergy status to analgesic agent; Z80.9 Family history of malignant neoplasm, unspecified; Z86.73 Personal history of transient ischemic attack (TIA), and cerebral infarction without residual deficits; Z90.710 Acquired absence of both cervix and uterus; Z95.2 Presence of prosthetic heart valve; Y93.89 Activity, other specified; Y92.89 Other specified places as the place of occurrence of the external cause; Y99.8 Other external cause status; Z68.23 Body mass index [BMI] 23.0-23.9, adult
CPT/HCPCS: 36415; 70450; 71045; 72125; 80053; 82306; 83735; 83880; 83970; 84100; 84484; 85025; 87040; 87081; 87205; 87340; 87426; 90935; 93005; 96374; 96375; 97163; C9113; G0378; J0696; J1885; J2405; J3490